=== PATIENT | female | born 1975 | race Caucasian/White ===

== ENCOUNTER 2018-12-06 00:23 | Outpatient (CLI) | payer BC, SELFPAY ==
--- NOTE | 2018-12-06 15:58 | DI.MAMMO_ITS ---
SYMPTOM/DIAGNOSIS: SCREENING, Z12.31, BASELINE MAMMOGRAMS: Mammograms were interpreted according to the usual protocol including computer analysis with CAD system, tomosynthesis and C view imaging. The breast tissue is of moderate radiodensity. There is no dominant mass. There are no suspicious calcifications. There is a question regarding small asymmetric densities in the lateral portion of the left breast, only suggested on the craniocaudad projection. Further evaluation of this patient with craniocaudad compression spot films and ultrasound is recommended. IMPRESSION: Category 0. Breast density, category B. Further evaluation with compression spot films and ultrasound is recommended. [facility] ASSESSMENT OF FINDINGS: Incomplete: Needs additional imaging evaluation. Category 0. Patient will receive a letter notifying them of these results. BI-RADS category B. There are scattered areas of fibroglandular density.
== END 2018-12-06 00:43 ==
PROVIDERS: PCP Nurse Practitioner Family; Visit Provider Nurse Practitioner Family
DX: Z12.31 Encounter for screening mammogram for malignant neoplasm of breast (principal); R92.8 Other abnormal and inconclusive findings on diagnostic imaging of breast
CPT/HCPCS: 77063; 77067

== ENCOUNTER 2018-12-12 01:17 | Outpatient (CLI) | payer BC, SELFPAY ==
--- NOTE | 2018-12-12 10:15 | DI.MAMMO_ITS ---
SYMPTOM/DIAGNOSIS: ASYMMETRIC DENSITIES, F/U MAMMO LEFT BREAST ADDITIONAL VIEW: Additional images are interpreted according to the usual protocol including tomosynthesis and 2D imaging. A CC spot compression view was performed of the lateral portion of the left breast for areas of asymmetry. No persistent abnormality is seen. The findings are consistent with overlying fibroglandular tissue. IMPRESSION: Category 1B, negative mammogram. Yearly screening mammography is recommended. [facility] ASSESSMENT OF FINDINGS: Negative. Category 1. Patient will receive a letter notifying them of these results. BI-RADS category B. There are scattered areas of fibroglandular density.
== END 2018-12-12 01:37 ==
PROVIDERS: PCP Nurse Practitioner Family; Visit Provider Nurse Practitioner Family
DX: Z12.31 Encounter for screening mammogram for malignant neoplasm of breast (principal); R92.8 Other abnormal and inconclusive findings on diagnostic imaging of breast; N64.59 Other signs and symptoms in breast
CPT/HCPCS: 77063; 77067

== ENCOUNTER 2019-02-07 22:19 | Emergency (ER) | payer BC, SELFPAY ==
[2019-02-07 22:25] VITALS: BP 142/69; PULSE 82; RESP 20; TEMP 37.2; O2SAT 99
--- NOTE | 2019-02-07 22:40 | W.ED.GENAD ---
Discharge Plan Disposition Patient Disposition: HOME Condition: Good Discharge Details Chief Complaint: Nk/Back Pain Clinical Impression: Muscle spasm of back Primary Care Provider: Marilee Waters ED Provider: Wolf [place] and New Rx's Prescriptions: New lidocaine [Lidoderm] 5 % Adhesive Patch,Medicated 1 patch topical DIRECTED Qty: 15 RF: 0 cyclobenzaprine 10 mg tablet 10 mg PO TID PRN (Reason: muscle spasm) Qty: 14 RF: 0 ibuprofen 600 mg tablet 600 mg PO TID PRN (Reason: pain) Qty: 20 RF: 0 Continued fluocinonide 30 GM cream 30 gm Topical BID Qty: 1 RF: 0 Discharge Instructions Instructions: Muscle Spasm (ED) Additional Instructions: Ibuprofen for pain and anti-inflammatory effects. Lidoderm patch to help with pain. Cyclobenzaprine for muscle spasm. Heat, gentle stretching, gentle massage are all likely to help. Follow-up with primary care next week if not better. Return to emergency department if you develop fever, chest pain, shortness of breath, abdominal pain, worsening back pain, neurologic changes. Referrals: Marilee Waters, SONOSCOPE OPERATOR [Primary Care Provider] - Medical Decision Making Patient with musculoskeletal left lumbar back pain. Had been present over the weekend after shoveling. Exacerbated and much worse tonight after coughing. Lungs are clear and she is not having respiratory difficulty. Saturations are normal. There is no spinal tenderness or neurologic changes. Her tenderness is the left lumbar region. We will give Toradol IM, Flexeril p.o. and Lidoderm patch and reevaluate. 23:25 -patient doing better. Pain is not as intense. She is able to move a little bit better. Can be discharged home to continue ibuprofen 600 mg 3 times daily, Flexeril 10 mg 3 times daily, Lidoderm patches as directed. Heat, stretching, gentle massage. Follow-up with primary care next week if not doing better. Return to ED if develop chest pain, abdominal pain, difficulty breathing, neurologic changes, fever, other concerns. HPI General Mode of arrival: ambulatory. Date/Time Provider Initiated Documentation: 02/07/19 22:39. Limitations to Documentation: no limitations. Information obtained by: patient. HPI Narrative: Patient presents to ED with left sided upper lumbar pain. Patient diagnosed with bronchitis last week and has just finished doxycycline this morning. She was shoveling on Tuesday and developed lumbar pain in the area where she is having it tonight. However, it was not overly bothersome and Annamarie was taking care of it. Tonight in bed she had a little bit of a cough and felt a pop and had severe pain in the area of her back where she was having discomfort previously. She has difficulty bending, twisting, walking. She does not feel short of breath. She is not having chest pain or abdominal pain. She is not having neurologic symptoms and has no midline back pain. She had difficulty walking downstairs to get here. She does not wish to move any more than she has to. Related Data Home Medications Medication Instructions Recorded Confirmed fluocinonide 30 gm TOPICAL BID #1 script 11/26/13 02/07/19 cyclobenzaprine 10 mg PO TID PRN #14 tab 02/07/19 ibuprofen 600 mg PO TID PRN #20 tab 02/07/19 lidocaine [Lidoderm] 1 patch TOPICAL DIRECTED #15 02/07/19 each Previous Rx's Medication Instructions Recorded cyclobenzaprine 10 mg PO TID PRN #14 tab 02/07/19 ibuprofen 600 mg PO TID PRN #20 tab 02/07/19 lidocaine [Lidoderm] 1 patch TOPICAL DIRECTED #15 02/07/19 each Allergies Allergy/AdvReac Type Severity Reaction Status Date / Time amoxicillin Allergy Intermediate Hives Unverified 02/07/19 22:33 General Stated Complaint: Nk/Back Pain AUGUSTO: 3 Review of Systems Review of Systems As documented in HPI otherwise negative as below. Const: no fever, chills, weakness Resp: no SOB, pleuritic pain CV: no CP, diaphoresis, edema, syncope GI: no abdominal pain, nausea, vomiting, diarrhea Neuro: no headache, numbness, focal weakness, confusion [facility] Medical History Idiopathic scoliosis Psoriasis Surgical History Dilation and curettage Social History Smoking/Tobacco Use Status: Never Alcohol Intake: current Alcohol Intake frequency: holidays/special occasions only Drug use: Never Do you feel safe in your relationship?: Yes History History 3 Para Hx # Term Pregnancies 2 Multiple births Hx # Pregnancies Ectopic pregnancies AB induced Hx Number of Living Children 2 AB spontaneous 1 Exam Narrative Exam Narrative: 1. Const: WDWN female uncomfortable sitting upright on stretcher. 2. Eyes: No conjunctival injection or scleral icterus. 3. ENT: NC/AT. No facial swelling or tenderness. Mucous membranes moist. 4. Neck: Supple without adenopathy. Trachea midline. 5. CVS: +S1/S2, No murmurs or gallops. 6. RESP: Unlabored respiratory effort. Clear to auscultation bilaterally. No wheezes rales or rhonchi 7. MSK: No C/C/E present. No spinal tenderness with palpation. Limited ROM of torso due to pain. Tender to palpation upper left lumbar area. No rib tenderness. 8. Skin: Warm, Dry. No rashes or lesions. 9. Neuro: A&O x3. community services coordinator II-XII grossly intact. Sensation grossly intact, no focal neurologic deficits. Course Vital Signs Temperature 99.0 F 02/07/19 22:25 Pulse 82 02/07/19 22:25 Respiratory Rate 20 02/07/19 22:25 Blood Pressure 142/69 H 02/07/19 22:25 Pulse Oximetry 99 02/07/19 22:25 Temperature 99.0 F 02/07/19 22:25 Temperature Source Temporal Artery Scan 02/07/19 22:25 Pulse 82 02/07/19 22:25 Respiratory Rate 20 02/07/19 22:25 Respiratory Effort 02/07/19 22:25 Blood Pressure 142/69 H 02/07/19 22:25 Pulse Oximetry 99 02/07/19 22:25 Oxygen Delivery Method Room Air 02/07/19 22:25 Oxygen Flow Rate 0 02/07/19 22:25 Pain Level 10 02/07/19 22:32
[2019-02-07] MEDS: Ketorolac 30 MG/ML VIAL IM (22:56)
[2019-02-07] MEDS: Lidocaine 5% Patch 1 PATCH TP (22:57)
[2019-02-07] MEDS: Cyclobenzaprine 10 MG TAB PO (22:57)
== END 2019-02-07 23:46 | disposition home or self-care (01) ==
PROVIDERS: Emergency Provider Emergency Medicine; PCP Nurse Practitioner Family
DX: M62.830 Muscle spasm of back (principal)
CPT/HCPCS: 96372; 99284; J1885

== ENCOUNTER 2019-11-15 15:20 | Outpatient (REF) | payer BC, SELFPAY ==
--- NOTE | 2019-11-15 13:30 | PAPFT_PTH ---
PATIENT: Tamia Lane LOC: [facility] U#:[id number] AGE/SX: 44/F ROOM: RE11/15/[address]: BRYN Kothari : 1975 BED: DIS: 11/15/2019 SPEC #: [id number] RECD: 11/15/19 18:05 STATUS: TOSHA REDawood #: [id number] JAZIEL: 11/15/19 13:[address]: Joyce Gorman DEPT: [facility] Cytology RECD BY: Anya Fernandez ENTERED: 11/15/19 18:05 SP TYPE: PAPFT OT DR: BRYN Encarnacion Tissues: 1 - CX/ENDOCX FOR PAP SMEARS Procedures: PAP THIN PREP/UVM Screening Comments: [id number]
== END 2019-11-15 15:40 ==
LOC: LBN 15:20
PROVIDERS: PCP Nurse Practitioner Family; Visit Provider Nurse Practitioner Family
DX: Z12.4 Encounter for screening for malignant neoplasm of cervix (principal); Z11.51 Encounter for screening for human papillomavirus (HPV)
CPT/HCPCS: 88142

== ENCOUNTER 2019-11-19 13:58 | Outpatient (REF) | payer BC, SELFPAY ==
--- NOTE | 2019-11-19 13:30 | CER_PTH ---
PATIENT: Tamia Lane LOC: [facility] U#:[id number] AGE/SX: 44/F ROOM: RE11/19/[address]: Aman Herrera MD : 1975 BED: DIS: 11/19/2019 SPEC #: [id number] RECD: 11/19/19 17:15 STATUS: TOSHA REQ #: [id number] JAZIEL: 11/19/19 13:[address]: Aman Herrera DEPT: Surgical Specimen RECD BY: Anya Fernandez ENTERED: 11/19/19 17:16 SP TYPE: CER NINI DR: BRYN Encarnacion Tissues: 1 - CERVICAL BIOPSY Procedures: GROSS AND MICRO LEVEL 4 Comments: [id number]
== END 2019-11-19 14:18 ==
LOC: LBN 13:58
PROVIDERS: PCP Nurse Practitioner Family; Visit Provider Obstetrics & Gynecology
DX: N84.1 Polyp of cervix uteri (principal)
CPT/HCPCS: 88305

== ENCOUNTER 2019-12-17 01:39 | Outpatient (CLI) | payer BC, SELFPAY ==
--- NOTE | 2019-12-17 15:55 | DI.MAMMO_ITS ---
EXAM: MG MAMMO SCREENING CLINICAL HISTORY: Screening, Z12.31 TECHNIQUE: Bilateral full field digital CC and MLO mammographic images were obtained with 3D tomosyn thesis and utilizing computer aided detection (CAD). COMPARISON: Available for comparison. FINDINGS: Masses/Architectural Distortion: None seen. Microcalcifications: No suspicious pleomorphic-type are seen. Skin Thickening/Nipple Retraction: None. IMPRESSION: 1. No significant interval change with no specific features of malignancy noted. 2. Unless there is more urgent need, screening mammography is recommended, as per [employer] guidelines. ACR BI-RAD Category- 1 Negative Breast Density - Category B - Scattered areas of fibroglandular density A negative radiographic report should not delay biopsy if a dominant or clinically suspicious mass is present. Up to ten percent of cancers are not identified on mammography. A negative report may reinforce clinical impression. Adenosis and dense breasts may obscure an underlying neoplasm. False positive reports average 6 to 10%. Patient will receive a letter notifying them of these results.
== END 2019-12-17 01:59 ==
PROVIDERS: PCP Nurse Practitioner Family; Visit Provider Nurse Practitioner Family
DX: Z12.31 Encounter for screening mammogram for malignant neoplasm of breast (principal)
CPT/HCPCS: 77063; 77067

== ENCOUNTER 2020-04-17 11:37 | Outpatient (REF) | payer BC, SELFPAY ==
--- NOTE | 2020-04-17 11:15 | PAPFT_PTH ---
PATIENT: Tamia Lane LOC: [facility] U#:[id number] AGE/SX: 44/F ROOM: RE04/17/[address]: BRYN Kothari : 1975 BED: DIS: 04/17/2020 SPEC #: [id number] RECD: 04/17/20 13:13 STATUS: TOSHA RED[place] #: [id number] JAZIEL: 04/17/20 11:[address]: Joyce Gorman DEPT: [facility] Cytology RECD BY: Anya Fernandez ENTERED: 04/17/20 13:14 SP TYPE: PAPFT NINI DR: BRYN Encarnacion Tissues: 1 - CX/ENDOCX FOR PAP SMEARS Procedures: PAP THIN PREP/UVM Screening HPV DNA PROBE Comments: [id number]
== END 2020-04-17 11:57 ==
LOC: LBN 11:37
PROVIDERS: PCP Nurse Practitioner Family; Visit Provider Nurse Practitioner Family
DX: Z12.4 Encounter for screening for malignant neoplasm of cervix (principal); Z11.51 Encounter for screening for human papillomavirus (HPV)
CPT/HCPCS: 88142; 87624

== ENCOUNTER 2022-02-05 02:12 | Outpatient (CLI) | payer BC, SELFPAY ==
--- NOTE | 2022-02-05 15:00 | DI.MAMMO_ITS ---
Exam(s) MAMMO SCREENING EXAM: MAMMO SCREENING CLINICAL HISTORY: screening TECHNIQUE: Bilateral full field digital CC and MLO mammographic images were obtained with 3D tomosyn thesis and utilizing computer aided detection (CAD). COMPARISON: Available for comparison. FINDINGS: Masses/Architectural Distortion: None seen. Microcalcifications: No suspicious pleomorphic-type are seen. Skin Thickening/Nipple Retraction: None. IMPRESSION: 1. No significant interval change with no specific features of malignancy noted. 2. Unless there is more urgent need, screening mammography is recommended, as per [employer] guidelines. BI-RADS Category 1 - Negative Breast Density - Category B - Scattered areas of fibroglandular density Breast density category C or D implies that the patient has dense breast tissue. Dense breast tissue is very common and is not abnormal but dense breast tissue can make it harder to find cancer on a ma mmogram. Also, dense breast tissue may increase their breast cancer risk. This information about the result of the mammogram report was provided to the patient to raise their awareness. Use this report when you speak with the patient about their risks for breast cancer, which includes their family hist ory. At that time, you may recommend for more screening tests (Ultrasound or MRI) as they might be us eful based on their risk. A negative radiographic report should not delay biopsy if a dominant or clinically suspicious mass is present. Up to ten percent of cancers are not identified on mammography. A negative report may reinforce clinical impression. Adenosis and dense breasts may obscure an underlying neoplasm. False positive reports average 6 to 10%. Patient will receive a letter notifying them of these results.
== END 2022-02-05 02:32 ==
PROVIDERS: PCP Nurse Practitioner Family; Visit Provider Nurse Practitioner Family
DX: Z12.31 Encounter for screening mammogram for malignant neoplasm of breast (principal)
CPT/HCPCS: 77063; 77067